=== PATIENT | male | born 1995 | race African-American/Black ===

== ENCOUNTER 2025-01-20 01:03 | Inpatient (IN) | payer BC ==
[~2025-01-20] VITALS: Ht 182.9 cm; Wt 76.4 kg
[2025-01-20] MEDS: SODIUM CHLORIDE 0.9% 1,000 ML IV ONE (02:17)
[2025-01-20] MEDS: ONDANSETRON HCL 4MG/2ML INJ IV ONE ×2 (02:18→05:43)
[2025-01-20] MEDS: KETOROLAC 15MG/ML VIAL IV ONE (02:20)
[2025-01-20 02:28] LABS: HEMATOCRIT. 39.4 % (42.0-52.0); HEMOGLOBIN. 13.3 g/dL (14.0-18.0); MEAN PLATELET VOLUME 7.4 fl (7.4-10.4); PLATELET 428 x1000/uL (130-400); RED BLOOD CELL COUNT 4.79 mill/uL (4.7-6.1); RED CELL DISTRIBUTION WIDTH 13.7 % (11.6-14.6)
[2025-01-20 02:45] LABS: CREATININE 1.0 mg/dL (0.6-1.3); UREA NITROGEN BLOOD 5 mg/dL (9-23)
[2025-01-20 02:46] LABS: TROPONIN I HIGH SENSITIVITY 28 ng/L (3.0-53)
[2025-01-20 02:47] LABS: ASPARTATE AMINOTRANSFERASE 29 IU/L (<34); BILIRUBIN DIRECT < 0.1 mg/dL (<=3.0); BILIRUBIN TOTAL 0.2 mg/dL (0.1-1.0); PROTEIN TOTAL 7.0 g/dL (6.0-8.3)
[2025-01-20] MEDS: POTASSIUM CHLORIDE 20MEQ/PACKET PO ONE (03:00)
[2025-01-20] MEDS ORDERED: VANCOMYCIN 1G PREMIX 200 ML IV ONE (03:00)
[2025-01-20] MEDS: PIPERACILLIN/TAZO 3.375G/50ML 50 ML IV ONE (03:19)
[2025-01-20] MEDS: SODIUM CHLORIDE 0.9% (SEPSIS BOLUS) IV ONE (03:19)
[2025-01-20] MEDS: METOCLOPRAMIDE HCL 10MG/2ML VIAL IV ONE (03:20)
[2025-01-20 04:29] VITALS: O2SAT 100
[2025-01-20] MEDS: MIDAZOLAM HCL 2 MG/2 ML VIAL IV ONE (04:29)
[2025-01-20] MEDS ORDERED: KCL 10MEQ/50ML PREMIX 50 ML IV ONE (05:30)
[2025-01-20 06:26] LABS: TROPONIN I HIGH SENSITIVITY 68 ng/L (3.0-53)
[2025-01-20 06:40] VITALS: BP 128/65; PULSE 84; RESP 20; TEMP 36.974
[2025-01-20 08:00] VITALS: BP 140/83; PULSE 137; RESP 18; TEMP 36.8; O2SAT 100
[2025-01-20] MEDS: ASPIRIN 81MG TABLET PO SCH (09:00)
[2025-01-20] MEDS: PANTOPRAZOLE SODIUM 40 MG/VIAL IV SCH (09:30)
[2025-01-20] MEDS: PIPERACILLIN/TAZO 3.375G/50ML 50 ML IV SCH (09:30)
[2025-01-20] MEDS: ONDANSETRON HCL 4MG/2ML INJ IV PRN (09:54)
[2025-01-20] MEDS: ACETAMINOPHEN 325MG TABLET PO PRN (09:58)
[2025-01-20 11:41] LABS: LYMPHOCYTES % MANUAL 6.0 % (20.0-50.0); MONOCYTES % MANUAL 2.0 % (2.0-8.0); NEUTROPHILS % MANUAL 92.0 % (45.0-75.0); PLATELET ESTIMATE INCREASED
[2025-01-20] MEDS ORDERED: LIDOCAINE HCL 1% 10 MG/ML 10ML VIAL ONE (11:52)
[2025-01-20 12:00] VITALS: BP 150/87; PULSE 95; RESP 19; TEMP 36.9; O2SAT 100
[2025-01-20 12:06] LABS: TRIGLYCERIDE 54.0 mg/dL (0-150)
[2025-01-20 12:07] LABS: LDL CHOLESTEROL 58.0 mg/dL (5-100)
[2025-01-20 12:10] LABS: T4 FREE 1.11 ng/dL (0.89-1.76)
[2025-01-20] MEDS: VANCOMYCIN 1.5GM PMX (XELLIA) 300 ML IV NR (13:57)
[2025-01-20] MEDS: KCL 20MEQ/100ML PREMIX 100 ML IV SCH (14:17)
[2025-01-20] MEDS: MORPHINE SULFATE 4 MG/ML INJ (FOR IV/IM USE) IV PRN (14:22)
[2025-01-20 16:00] VITALS: PULSE 137; RESP 20; TEMP 36.8; O2SAT 100
[2025-01-20 18:58] LABS: *AMPHETAMINES SCREEN URINE NEGATIVE (NEGATIVE)
[2025-01-20 18:59] LABS: *BARBITURATES SCREEN URINE PRESUMPTIVE POSITIVE (NEGATIVE); *BENZODIAZEPINES SCREEN URINE PRESUMPTIVE POSITIVE (NEGATIVE); *COCAINE SCREEN URINE NEGATIVE (NEGATIVE); CANNABINOID URINE SCREEN NEGATIVE (NEGATIVE); ECSTASY MDMA SCREEN URINE NEGATIVE (NEGATIVE); METHADONE URINE SCREEN NEGATIVE (NEGATIVE); OPIATES URINE SCREEN NEGATIVE (NEGATIVE); PHENCYCLIDINE URINE SCREEN NEGATIVE (NEGATIVE)
[2025-01-20 19:41] LABS: HEPATITIS A AB IGM NEGATIVE (Negative); HEPATITIS B CORE AB IGM NEGATIVE (Negative)
[2025-01-20 19:42] LABS: HEPATITIS C AB NON REACTIVE (Neg) (Negative)
[2025-01-20 20:00] VITALS: BP 157/98; PULSE 102; RESP 19; TEMP 36.3; O2SAT 98
[2025-01-20] MEDS: ATORVASTATIN CALCIUM 40MG TABLET PO SCH (21:00)
[2025-01-20] MEDS: LORAZEPAM 1MG TABLET PO PRN (23:10)
[2025-01-20] MEDS ORDERED: VANCOMYCIN 1.5GM PMX (XELLIA) 300 ML IV SCH (23:45)
[2025-01-21] VITALS: BP 183/108; PULSE 101; RESP 19; TEMP 36.4; O2SAT 98
[2025-01-21] MEDS: VANCOMYCIN 1.5GM/250ML 250 ML IV SCH (01:16)
[2025-01-21 04:00] VITALS: BP 178/102; PULSE 100; RESP 19; TEMP 36.2; O2SAT 99
[2025-01-21 12:00] VITALS: BP 143/102; PULSE 101; RESP 20; TEMP 37.4; O2SAT 100
[2025-01-21] MEDS: POTASSIUM CHLORIDE 20MEQ TABLET SR PO SCH (12:29)
[2025-01-21 16:00] VITALS: BP 141/98; PULSE 96; RESP 19; TEMP 36.8; O2SAT 98
[2025-01-21] MEDS: KCL 20MEQ/100ML PREMIX 100 ML IV SCH (17:51)
[2025-01-21] MEDS: METOCLOPRAMIDE HCL 10MG/2ML VIAL IV SCH (18:08)
[2025-01-21 20:00] VITALS: BP 140/95; PULSE 94; RESP 20; TEMP 36.8; O2SAT 99
[2025-01-21 21:18] LABS: CLARITY URINE TURBID (CLEAR); GLUCOSE URINE NEGATIVE (NEGATIVE); KETONES URINE 1+ (NEGATIVE); LEUKOCYTE ESTERASE URINE NEGATIVE (NEGATIVE); NITRITE URINE NEGATIVE (NEGATIVE); OCCULT BLOOD URINE NEGATIVE (NEGATIVE); PH URINE 6.0 (4.5-8.0); PROTEIN URINE 2+ (NEGATIVE); SPECIFIC GRAVITY URINE 1.041 (1.005-1.030); UROBILINOGEN URINE 0.2 E.U./dL (0.2-1.0)
[2025-01-21 21:30] LABS: COLOR URINE YELLOW (YELLOW)
[2025-01-21 21:31] LABS: AMORPHOUS SEDIMENT URINE 4+ /lpf; BACTERIA URINE NONE SEEN; RBC URINE NONE SEEN /hpf (0-2); SQUAMOUS EPITHELIAL CELL URINE NONE SEEN /lpf (RARE/1+); WBC URINE 0-2 /hpf (0-2)
[2025-01-21 22:06] LABS: BASOPHILS % 0.4 % (0.0-2.0); EOSINOPHILS % 0.0 % (0.0-5.0); HEMATOCRIT. 41.5 % (42.0-52.0); HEMOGLOBIN. 13.8 g/dL (14.0-18.0); LYMPHOCYTES % 11.2 % (20.0-50.0); MEAN PLATELET VOLUME 8.1 fl (7.4-10.4); MONOCYTES % 4.4 % (2.0-8.0); NEUTROPHILS % 84.0 % (40.0-76.0); PLATELET 69 x1000/uL (130-400); RED BLOOD CELL COUNT 5.01 mill/uL (4.7-6.1); RED CELL DISTRIBUTION WIDTH 14.0 % (11.6-14.6)
[2025-01-21 22:19] LABS: CREATININE 0.8 mg/dL (0.6-1.3)
[2025-01-21 22:20] LABS: UREA NITROGEN BLOOD 8 mg/dL (9-23)
[2025-01-22] VITALS: BP 145/87; PULSE 84; RESP 18; TEMP 36.7; O2SAT 99
[2025-01-22] MEDS ORDERED: POTASSIUM CHLORIDE 40 MEQ in DEXT 5% WATER 230 ML IV ONE (00:15)
[2025-01-22] MEDS: POTASSIUM CHLORIDE 20MEQ TABLET SR PO NR (00:33)
[2025-01-22] MEDS: KCL 20MEQ/100ML X 2 FOR TOTAL KCL 40MEQ/200ML IV SCH (01:46)
[2025-01-22 04:00] VITALS: BP 146/101; PULSE 79; RESP 18; TEMP 36.7; O2SAT 100
[2025-01-22 08:00] VITALS: BP 149/80; PULSE 80; RESP 18; TEMP 36.5; O2SAT 100
[2025-01-22] MEDS: FAMOTIDINE 20MG/2ML VIAL IV SCH (09:48)
[2025-01-22 11:35] VITALS: BP 149/80; PULSE 90; RESP 18; TEMP 97.7
== END 2025-01-22 12:32 | disposition left against medical advice (07) | DRG 871 ==
LOC: ER 01:03 → EDBEDREQTM 04:02 → EDBEDREQSVC 04:02 → 6WST 04:22 → EDBEDREQ 04:27 → EDBEDREQTM 04:27 → ENRESERV 05:49
PROVIDERS: ADMIT Internal Medicine; ATTEND Internal Medicine
DX: A41.9 Sepsis, unspecified organism (principal); G92.8 Other toxic encephalopathy; I21.A1 Myocardial infarction type 2; E87.20 Acidosis, unspecified; E87.0 Hyperosmolality and hypernatremia; J68.0 Bronchitis and pneumonitis due to chemicals, gases, fumes and vapors; K75.9 Inflammatory liver disease, unspecified; D72.810 Lymphocytopenia; F11.13 Opioid abuse with withdrawal; I16.0 Hypertensive urgency; E05.90 Thyrotoxicosis, unspecified without thyrotoxic crisis or storm; Z59.00 Homelessness unspecified; E87.6 Hypokalemia; Z53.29 Procedure and treatment not carried out because of patient's decision for other reasons; F19.90 Other psychoactive substance use, unspecified, uncomplicated
CPT/HCPCS: 36415; 71045; 77001; 80048; 80061; 80076; 80305; 81003; 83036; 83605; 84145; 84439; 84443; 84484; 85025; 86705; 86709; 87340; 93005; 99291; C1725; J1308; J1885; J2003; J2250; J2270; J2405; J2470; J2543; J2765; J3373; J3480; J7030